=== PATIENT | female | born 1975 | race Caucasian/White ===

== ENCOUNTER 2016-04-17 23:13 | Emergency (ER) | payer BC ==
[~2016-04-17] VITALS: Ht 165.1 cm; Wt 63.5 kg
[2016-04-18] MEDS ORDERED: ONDANSETRON 4 MG TAB.RAPDIS ONE (01:08)
[2016-04-18] MEDS ORDERED: LIDOCAINE VISCOUS 2% UD 15 ML UDC ONE (01:19)
[2016-04-18] MEDS ORDERED: MAG HYDROX/AL HYDROX/SIMETH 30 ML UDC ONE (01:19)
[2016-04-18] MEDS ORDERED: LIDOCAINE VISCOUS 2% UD 15 ML UDC MM ONE (01:30)
[2016-04-18] MEDS ORDERED: ONDANSETRON 4 MG TAB.RAPDIS SL ONE (01:30)
[2016-04-18] MEDS ORDERED: MAG HYDROX/AL HYDROX/SIMETH 30 ML UDC PO ONE (01:30)
[2016-04-18 01:54] VITALS: BP 115/73
== END 2016-04-18 01:56 | disposition home or self-care (01) ==
LOC: ER 23:17
DX: K29.70 Gastritis, unspecified, without bleeding (principal)
CPT/HCPCS: A4606; Q0162; Z7610

== ENCOUNTER 2016-10-31 09:50 | Emergency (ER) | payer BC ==
[~2016-10-31] VITALS: Ht 165.1 cm; Wt 64.9 kg
--- NOTE | 2016-10-31 09:50 | NUR ---
PT TO ED ROOM 06. FEELING DIZZY,NAUSEATED WITH ON & OFF DIARRHEA. A/A/O. NAD. VS WNL. SIDE RAISL UP. HOB ELEVATED. CONNECTED TO MONITOR. SEEN BY ED PROVIDER. URINE SAMPLE COLLECTED AND SEND TO LAB.
[2016-10-31 10:19] LABS: APPEARANCE,URINE Clear (CLEAR); BILIRUBIN,URINE Negative (NEGATIVE); BLOOD, URINE Moderate Ery/uL (NEGATIVE); COLOR,URINE Yellow (YELLOW); KETONES,URINE Negative (NEGATIVE); LEUKOCYTE ESTERASE ,URINE Negative (NEGATIVE); NITRITE, URINE Negative (NEGATIVE); PROTEIN,URINE Negative (NEGATIVE); UGLUCOSE Negative (NEGATIVE); UROBILINOGEN,URINE 0.2 EU/dL (0.2)
[2016-10-31 10:21] LABS: PREGNANCY TEST URINE QUAL NEGATIVE (NEGATIVE)
[2016-10-31] MEDS ORDERED: ONDANSETRON HCL/PF 4 MG/2 ML VIAL ONE (10:24)
[2016-10-31 10:25] LABS: BACTERIA,URINE Few /HPF (None Seen); SQUAMOUS EPITHELIAL CELL,UR Few /HPF (None Seen); WBC,URINE 0-2 /HPF (0-3)
--- NOTE | 2016-10-31 10:26 | NUR ---
LINE STARTED ON R AC G 18, BLOOD DRAWN FROM LINE AND SENT TO LAB
[2016-10-31 10:28] LABS: BASOPHILS % (AUTO) 0.5 % (0.0-2.0); EOSINOPHILS # (AUTO) 0.1 /CMM (0.0-0.7); EOSINOPHILS % (AUTO) 1.5 % (0.0-6.0); HEMATOCRIT 39 % (33-45); HEMOGLOBIN 13.1 g/dL (11.5-14.8); LYMPHOCYTES # (AUTO) 1.6 /CMM (0.8-4.8); LYMPHOCYTES % (AUTO) 32.7 % (20.0-44.0); MEAN CORPUSCULAR HEMOGLOBIN 29 PG (26.0-33.0); MEAN CORPUSCULAR HGB CONC 34 g/dl (31.0-36.0); MEAN CORPUSCULAR VOLUME 86 fL (82-100); MONOCYTES # (AUTO) 0.4 /CMM (0.1-1.30); MONOCYTES % (AUTO) 7.6 % (2.0-12.0); NEUTROPHILS # (AUTO) 2.8 /CMM (1.8-8.9); NEUTROPHILS % (AUTO) 57.7 % (43.0-81.0); PLATELET COUNT (AUTO) 269 /CMM (150-450); RDW COEFFICIENT OF VARIATION 12.2 (11.5-15.0); RED BLOOD CELL COUNT(AUTO) 4.54 MIL/uL (4.0-5.2); WHITE BLOOD COUNT (AUTO) 4.9 K/uL (4.3-11.0)
[2016-10-31] MEDS ORDERED: ONDANSETRON HCL/PF 4 MG/2 ML VIAL IVP ONE (10:30)
[2016-10-31] MEDS ORDERED: IV NS 0.9% 1,000 ML BAG IV ONE (10:30)
[2016-10-31 10:41] LABS: ALBUMIN 3.7 g/dL (3.4-5.0); BILIRUBIN,DIRECT 0.2 mg/dL (0.0-0.2); BILIRUBIN,TOTAL 0.9 mg/dL (0.2-1.0); CALCIUM, SERUM 8.1 mg/dL (8.5-10.1); CREATININE 0.7 mg/dL (0.6-1.3); TOTAL PROTEIN, SERUM 6.6 g/dL (6.4-8.2)
[2016-10-31 11:24] VITALS: BP 105/60
--- NOTE | 2016-10-31 11:24 | NUR ---
IV removed. Catheter intact and site benign. Pressure and 4x4 applied to site. No bleeding noted.Patient discharged to home in stable condition. Written and verbal after care instructions given. Patient verbalizes understanding of instruction. ambulatory with a steady gait.
== END 2016-10-31 11:25 | disposition home or self-care (01) ==
LOC: ER 09:52
DX: A09 Infectious gastroenteritis and colitis, unspecified (principal)
CPT/HCPCS: 36415; 80048; 80076; 81001; 84703; 85025; 96361; 96374; 99284; A4606; J2405; J7030 ×2; Z7610; 81000-TC

== ENCOUNTER 2018-08-27 16:06 | Emergency (ER) | payer BC, OTHER ==
[~2018-08-27] VITALS: Ht 165.1 cm; Wt 63.0 kg
[2018-08-27 16:32] VITALS: BP 115/85
--- NOTE | 2018-08-27 16:57 | NUR ---
For discharge- ACI given verbalized understanding Home ambulatory Stable
== END 2018-08-27 16:56 | disposition home or self-care (01) ==
LOC: ER 16:08
DX: R05 Cough (principal)

== ENCOUNTER 2022-03-17 11:57 | Emergency (ER) | payer OTHER ==
[~2022-03-17] VITALS: Ht 167.6 cm; Wt 69.4 kg
--- NOTE | 2022-03-17 12:40 | NUR ---
PT SEEN BY FOR EVFARZANA
[2022-03-17] MEDS ORDERED: GUAI5SYR4 PO (12:41)
--- NOTE | 2022-03-17 12:52 | NUR ---
Patient discharged to home in stable condition. Written and verbal after care instructions given. Patient verbalizes understanding of instruction. Prescription sent electronically.
[2022-03-17 12:53] VITALS: BP 113/71
== END 2022-03-17 12:54 | disposition home or self-care (01) ==
LOC: ER 12:01
DX: J20.9 Acute bronchitis, unspecified (principal); Z79.899 Other long term (current) drug therapy

== ENCOUNTER 2022-08-18 21:39 | Emergency (ER) | payer OTHER ==
[~2022-08-18] VITALS: Ht 167.6 cm; Wt 68.9 kg
[~2022-08-18 21:39] MED LIST: GUAI5SYR4 PO
[2022-08-18] MEDS ORDERED: MORPHINE SULFATE INJ 4 MG/ML DISP.SYRIN ONE (23:13)
[2022-08-18] MEDS ORDERED: MAG HYDROX/AL HYDROX/SIMETH 30 ML UDC ONE (23:13)
[2022-08-18] MEDS ORDERED: ONDANSETRON HCL/PF 4 MG/2 ML VIAL ONE (23:13)
[2022-08-18] MEDS ORDERED: MORPHINE SULFATE INJ 2 MG/ML DISP.SYRIN IV ONE (23:30)
[2022-08-18] MEDS ORDERED: LIDOCAINE VISCOUS 2% UD 15 ML UDC MM ONE (23:30)
[2022-08-18] MEDS ORDERED: IV NS 0.9% 1,000 ML BAG IV ONE (23:30)
[2022-08-18] MEDS ORDERED: ONDANSETRON HCL/PF 4 MG/2 ML VIAL IVP ONE (23:30)
[2022-08-18] MEDS ORDERED: MAG HYDROX/AL HYDROX/SIMETH 30 ML UDC PO ONE (23:30)
[2022-08-18 23:35] LABS: BASOPHILS % (AUTO) 0.3 % (0.0-2.0); HEMATOCRIT 39 % (33-45); HEMOGLOBIN 12.6 g/dL (11.5-14.8); LYMPHOCYTES # (AUTO) 2.7 K/uL (0.8-4.8); LYMPHOCYTES % (AUTO) 35.8 % (20.0-44.0); MEAN CORPUSCULAR HGB CONC 33 g/dl (31.0-36.0); MEAN CORPUSCULAR VOLUME 87 fL (82-100); MONOCYTES # (AUTO) 0.5 K/uL (0.1-1.30); MONOCYTES % (AUTO) 5.9 % (2.0-12.0); NEUTROPHILS # (AUTO) 4.3 K/uL (1.8-8.9); PLATELET COUNT (AUTO) 278 K/uL (150-450); RED BLOOD CELL COUNT(AUTO) 4.47 MIL/uL (4.0-5.2); WHITE BLOOD COUNT (AUTO) 7.7 K/uL (4.3-11.0)
[2022-08-18 23:56] LABS: CALCIUM, SERUM 9.1 mg/dL (8.5-10.1); CREATININE 0.7 mg/dL (0.6-1.3); POTASSIUM 3.7 mmol/L (3.5-5.1)
[2022-08-18 23:57] LABS: ALBUMIN 4.2 g/dL (3.4-5.0); BILIRUBIN,DIRECT 0.2 mg/dL (0.0-0.2); BILIRUBIN,TOTAL 0.8 mg/dL (0.2-1.0); TOTAL PROTEIN, SERUM 7.4 g/dL (6.4-8.2)
[2022-08-19 00:37] LABS: BILIRUBIN,URINE NEGATIVE (NEGATIVE); COLOR,URINE OTHER (YELLOW); LEUKOCYTE ESTERASE ,URINE NEGATIVE (NEGATIVE); NITRITE, URINE NEGATIVE (NEGATIVE); PH,URINE 5.5 (5.0-8.0); PROTEIN,URINE NEGATIVE (NEGATIVE); UGLUCOSE NEGATIVE (NEGATIVE); UROBILINOGEN,URINE 0.2 EU/dL (0.2)
[2022-08-19 01:09] LABS: BACTERIA,URINE Rare /HPF (None Seen); SQUAMOUS EPITHELIAL CELL,UR Few /HPF (None Seen)
[2022-08-19] MEDS ORDERED: OMEP20CA15 PO (01:11)
[2022-08-19] MEDS ORDERED: ONDA4TAB11 PO (01:11)
[2022-08-19 01:28] VITALS: BP 106/66
--- NOTE | 2022-08-19 01:28 | NUR ---
Patient discharged to home in stable condition. Written and verbal after care instructions given. Patient verbalizes understanding of instruction.IV removed. Catheter intact and site benign. Pressure and 4x4 applied to site. No bleeding noted.
== END 2022-08-19 01:28 | disposition home or self-care (01) ==
LOC: ER 21:42
DX: R10.13 Epigastric pain (principal); R11.2 Nausea with vomiting, unspecified; Z79.899 Other long term (current) drug therapy
CPT/HCPCS: 99284; 96374; 96361; 96375; 85025; 80048; 83690; 80076; 84703; 81001; 36415; J2270; J2405; J7030 ×2